=== PATIENT | female | born 1980 | race Two or more races ===

== ENCOUNTER 2024-04-12 19:57 | Emergency (ER) | payer MEDICAID, OTHER ==
[~2024-04-12] VITALS: Ht 157.5 cm; Wt 66.0 kg
[2024-04-12 21:23] VITALS: BP 137/89; PULSE 60; RESP 17; TEMP 98.3; O2SAT 99
[2024-04-12] MEDS: KETOROLAC TROMETH 30 MG/ML 1ML VIAL IM ONE (21:52)
[2024-04-12] MEDS: methylPREDNISolone SOD SUCC 125 MG/2 ML VL IM ONE (21:52)
[2024-04-12] MEDS ORDERED: CYCL-837 PO (22:09)
== END 2024-04-12 22:17 | disposition home or self-care (01) ==
LOC: ER 19:57
DX: G44.209 Tension-type headache, unspecified, not intractable (principal)
CPT/HCPCS: 96372; 99284; J1885; J2919